=== PATIENT | female | born 1970 | race Caucasian/White ===

== ENCOUNTER 2024-09-02 01:28 | Emergency (ER) | payer SELFPAY ==
[2024-09-02 01:32] VITALS: BP 100/86; PULSE 73; TEMP 36.5; O2SAT 98; BMI 36.3
[2024-09-02 01:35] VITALS: PULSE 76
--- NOTE | 2024-09-02 01:41 | ECG_ITS ---
[facility] Test Date: 2024-09-02 Pat Name: ELIEZER SANDHU Department: Room: - Gender: Female Manager Assisted Living: : 1970 Requested By: [id number] Order Number: [id number] Reading MD: TELMA REVELES Measurements Intervals [place] Rate: 76 P: 22 FL: 168 QRS: 27 QRSD: 84 T: 20 QT: 378 QTc: 409 Interpretive Statements 1100 Sinus rhythm 2420 RSR (QR) in lead V1/V2, consistent with right ventricular conduction delay 9130 borderline ECG Compared to ECG 01/06/2023 00:55:08 No significant changes Electronically Signed On 09-03-2024 12:40:00 EDT by TELMA REVELES
--- NOTE | 2024-09-02 01:41 | XR_ITS ---
The [address] [address] Patient Name: ELIEZER SANDHU MRN: [id number] date: 1970 Sex: F Assigned Patient Location: ER Current Patient Location: ER Accession/Order Number: [id number] Exam Date: 09/02/2024 01:55 Report Date: 09/02/2024 05:15 At the request of: KELVIN GRAHAM Procedure: XR chest 1V HISTORY: Chest pain. Shortness of breath. XR chest 1V: 09/02/2024 1:55 AM EDT COMPARISON: Portable AP chest 03/05/2022. FINDINGS: The cardiomediastinal silhouette appears within normal limits in size. No focal consolidation, pleural effusion, pneumothorax, or evidence of congestive heart failure is seen. XR/XR chest 1V IMPRESSION: No radiographic evidence of active cardiopulmonary disease is seen. Electronically authenticated by: RIGO DAWKINS Date: 09/02/2024 05:15
--- NOTE | 2024-09-02 01:42 | ED.CHESTPAI1 ---
HPI - Chest Pain General Chief Complaint: Chest Pain Stated Complaint: chest pain Time Seen by Provider: 09/02/24 01:31 Source: patient Mode of arrival: walk-in Limitations: no limitations History of Present Illness HPI narrative: 54-year-old female presents to the emergency department for chest pain. It started about 30 minutes ago while she was riding in a car. It is in the midline lower part of her sternal area, not the epigastric region. She states she had pain like this in her back once and she was told she had a panic attack. She has had a cholecystectomy and has no history of heart disease. It is sharp and it seems to wax and wane. Related Data Allergies Allergy/AdvReac Type Severity Reaction Status Date / Time acetaminophen (From Percocet) AdvReac Vomiting Verified 09/02/24 01:48 morphine AdvReac Vomiting Verified 09/02/24 01:48 oxycodone (From Percocet) AdvReac Vomiting Verified 09/02/24 01:48 Review of Systems ROS Narrative A ten point review of systems is negative except as noted above. PFSH PFSH Social History Little interest or pleasure in doing things: not at all Feeling down, depressed, or hopeless: not at all Exam Narrative Exam Narrative: Nurses note and vital signs reviewed and patient is not hypoxic. General: The patient appears uncomfortable. Skin: Warm, dry, no pallor noted. There is no rash noted. Head: Normocephalic, atraumatic Eye: Normal conjunctiva, no drainage Ears, Nose, Mouth, and Throat: oral mucosa is moist. Nares patent. Cardiovascular: Regular Rate and Rhythm, not tachycardic Respiratory: Patient is in no distress, no accessory muscle use, lungs are clear to auscultation, no wheezing, rales or rhonchi Back: non-tender GI: no tenderness to palpation including in the epigastric area, no masses appreciated. No rebound, guarding, or rigidity noted. Musculoskeletal: The patient has no evidence of calf tenderness, no pitting edema, symmetrical pulses noted bilaterally Neurological: A&O, normal speech Psychiatric: Cooperative Constitutional Vital Signs, click to edit/add: Last Vital Signs Temp 97.7 F 09/02/24 01:32 Pulse 73 09/02/24 01:32 Resp 16 09/02/24 01:32 BP 100/86 09/02/24 01:32 Pulse Ox 98 09/02/24 01:32 O2 Del Method Room Air 09/02/24 01:32 Course Vital Signs Vital signs: Vital Signs Temperature 97.7 F 09/02/24 01:32 Pulse Rate 73 09/02/24 01:32 Respiratory Rate 16 09/02/24 01:32 Blood Pressure 100/86 09/02/24 01:32 Pulse Oximetry 98 09/02/24 01:32 Oxygen Delivery Method Room Air 09/02/24 01:32 Temperature 97.7 F 09/02/24 01:32 Pulse Rate 73 09/02/24 01:32 Respiratory Rate 16 09/02/24 01:32 Blood Pressure 100/86 09/02/24 01:32 Pulse Oximetry 98 09/02/24 01:32 Oxygen Delivery Method Room Air 09/02/24 01:32 MDM - Chest Pain MDM Narrative Medical decision making narrative: During her stay in the emergency department the patient states she went to the bathroom and she passed a large amount of gas per rectum. She states that this resolved her pain completely and now she is asymptomatic. 2 sets of troponin are negative and the rest of her workup is negative as well and she is able to be discharged home. Findings were discussed with the patient. Differential Diagnosis Differential diagnosis: Likely pneumothorax, unstable angina pectoris, atypical chest pain and st elevation myocardial infarction Lab Data Attestation: I reviewed the patient's lab results. Labs: Lab Results 09/02/24 Range/Units 01:40 WBC 7.3 (4.0-11.0) 10^3/uL RBC 4.59 (4.20-5.40) 10^6/uL Hgb 14.3 (12.0-16.0) g/dL Hct 44.0 (36.0-48.0) % MCV 95.9 (81.0-99.0) fL MCH 31.2 (26.7-34.0) pg MCHC 32.5 (29.9-35.2) g/dL RDW 12.7 (11.0-15.0) % Plt Count 288 (150-450) 10^3/uL MPV 8.7 L (9.5-13.5) fL Neut % (Auto) 46.9 (43.0-75.0) % Lymph % (Auto) 43.4 (20.5-60.0) % [place] % (Auto) 6.6 (1.7-12.0) % Eos % (Auto) 2.3 (0.9-7.0) % Baso % (Auto) 0.7 (0.2-2.0) % Neut # (Auto) 3.4 (1.4-6.5) 10^3/uL Lymph # (Auto) 3.2 (1.2-3.8) 10^3/uL [place] # (Auto) 0.5 (0.3-0.8) 10^3/uL Eos # (Auto) 0.2 (0.0-0.7) 10^3/uL Baso # (Auto) 0.1 (0.0-0.1) 10^3/uL Abs Immat Gran (auto) 0.01 (0.00-0.03) 10^3/uL Imm/Tot Granulo (auto) 0.1 (0.0-0.5) % Imaging Data Chest x-ray: Radiologist's impression: ITS Impressions Chest X-Ray 09/02/24 01:41 IMPRESSION: No radiographic evidence of active cardiopulmonary disease is seen. Electronically authenticated by: RIGO DAWKINS Date: 09/02/2024 05:15 ECG Data Attestation: I personally reviewed and interpreted this ECG as follows: (EKG on my interpretation shows normal sinus rhythm with no acute change and a rate of 76) Heart Score History: Slightly/Non-Suspicious ECG: Normal Age: >45-<65 years Risk Factors: 1 or 2 Risk Factors Troponin: <Normal Limit Total Heart Score Recommendations & Risks:: 2 Discharge Plan Discharge Chief Complaint: Chest Pain Clinical Impression: Chest pain Patient Disposition: Home, Self-Care Condition: Good Mode of Transportation: Private Vehicle Print Language: Czech Instructions: Chest Pain (ED) Referrals: Physician,Non-Staff, MD [Primary Care Provider] - 1 week
[2024-09-02] MEDS: lidocaine HCL 15 ML, MAG HYDROX/ALUMINUM HYD/SIMETH 30 ML, HYOSCYAMINE SULFATE 0.25 MG PO (01:53)
[2024-09-02 02:02] LABS: Basophils Absolute Auto 0.1 10^3/uL (0.0-0.1); Basophils Percent Auto 0.7 % (0.2-2.0); Eosinophils Absolute Auto 0.2 10^3/uL (0.0-0.7); Eosinophils Percent Auto 2.3 % (0.9-7.0); Hemoglobin 14.3 g/dL (12.0-16.0); Immature Granulocytes Abs Auto 0.01 10^3/uL (0.00-0.03); Immature Granulocytes Pct Auto 0.1 % (0.0-0.5); Lymphocytes Absolute Auto 3.2 10^3/uL (1.2-3.8); Lymphocytes Percent Auto 43.4 % (20.5-60.0); Mean Corpuscular HGB Conc 32.5 g/dL (29.9-35.2); Mean Corpuscular Hemoglobin 31.2 pg (26.7-34.0); Mean Corpuscular Volume 95.9 fL (81.0-99.0); Mean Platelet Volume 8.7 fL (9.5-13.5); Monocytes Absolute Auto 0.5 10^3/uL (0.3-0.8); Monocytes Percent Auto 6.6 % (1.7-12.0); Neutrophils Absolute Auto 3.4 10^3/uL (1.4-6.5); Neutrophils Percent Auto 46.9 % (43.0-75.0); Platelet Count 288 10^3/uL (150-450); Red Blood Count 4.59 10^6/uL (4.20-5.40); Red Cell Distribution Width 12.7 % (11.0-15.0); White Blood Count 7.3 10^3/uL (4.0-11.0)
[2024-09-02 05:45] LABS: Anion Gap 16.2; BUN Creatinine Ratio 15.3; Calcium 11.3 mg/dL (8.5-10.1); Carbon Dioxide 23.5 mmol/L (21.0-32.0); Chloride 105 mmol/L (98-107); Estimated GFR (African America >60 (>=60 mL/min/1.73m^2); Estimated GFR (Non-African Ame >60 (>=60 mL/min/1.73m^2); Glucose 149 mg/dL (74-106); Potassium 3.7 mmol/L (3.5-5.1); Sodium 141 mmol/L (136-145); Troponin I High Sensitivity <4.0 pg/mL (4.0-51.3)
[2024-09-02 05:50] LABS: Troponin I High Sensitivity <4.0 pg/mL (4.0-51.3)
== END 2024-09-02 03:37 | disposition home or self-care (01) ==
PROVIDERS: Emergency Provider Emergency Medicine
DX: R07.9 Chest pain, unspecified (principal); Z90.49 Acquired absence of other specified parts of digestive tract
CPT/HCPCS: 36415; 71045; 80048; 84484; 85025; 93005; 99285